=== PATIENT | female | born 1960 | race Caucasian/White ===

== ENCOUNTER → 2018-08-09 | Outpatient (CLI) | payer BC, OTHER ==
--- NOTE | 2018-08-09 14:56 | RAD ---
EXAM DESCRIPTION: Pelvis CLINICAL HISTORY: M25.551 hip and pelvis pain COMPARISON: None. IMPRESSION: Single AP supine view of the pelvis shows no acute fracture, focal bone destruction, or joint dislocation. Lateral aspect of the right greater trochanter is not included in the [id number]. No advanced arthrosis is identified. Electronically signed by: Liam Gil MD 08/09/2018 2:54 PM CDT
--- NOTE | 2018-08-09 14:57 | RAD ---
EXAM DESCRIPTION: Hip,Right 2 Views CLINICAL HISTORY: M25.551 hip pain COMPARISON: None. IMPRESSION: 2 views of the right hip show no acute fracture, focal bone destruction, or joint dislocation. Mild sclerotic changes to the superior lateral acetabulum are seen with mild joint space narrowing suggesting mild osteoarthritic changes of the right hip. Electronically signed by: Liam Gil MD 08/09/2018 2:55 PM CDT
== END ==
LOC: RAD 09:56
PROVIDERS: ATTEND Orthopaedic Surgery
DX: M25.551 Pain in right hip (principal)

== ENCOUNTER → 2018-11-02 | Outpatient (CLI) | payer OTHER ==
--- NOTE | 2018-11-02 10:24 | RAD ---
PROVIDED CLINICAL HISTORY/REASON FOR EXAM: M25.511 Findings: Number of images: 4 Location: Right shoulder No acute fracture or dislocation. Mild acromioclavicular osteoarthritis. Soft tissues are unremarkable. Subacromial space is maintained. Visualized chest is clear. Glenohumeral relationship is maintained. IMPRESSION: No evidence of acute process in the right shoulder. Electronically signed by: Juan Starks MD 11/02/2018 10:23 AM CDT
== END ==
LOC: RAD 09:03
PROVIDERS: ATTEND Orthopaedic Surgery
DX: M25.511 Pain in right shoulder (principal)